=== PATIENT | female | born 1955 | race Caucasian/White ===

== ENCOUNTER → 2024-01-08 | Day surgery (SDC) | payer MEDICARE, OTHER ==
[2024-01-06 11:17] VITALS: BMI 29.9
[~2024-01-08] MED LIST: Lidocaine 1% PF 5 ML VIAL ONE; Lidocaine Viscous Sol 2% 15 ml UD Cup ONE; PROPOFOL 20 ML ONE
[2024-01-08 11:41] VITALS: BP 157/74; TEMP 98.3
== END ==
LOC: CSHSDC 10:47
PROVIDERS: ATTEND Specialist
PROC: 5A2204Z Restoration of Cardiac Rhythm, Single (ICD-10-PCS; principal; 2024-01-08)
PROC: B246ZZ4 Ultrasonography of Right and Left Heart, Transesophageal (ICD-10-PCS; 2024-01-08)
DX: I48.91 Unspecified atrial fibrillation (principal); I48.11 Longstanding persistent atrial fibrillation; E78.5 Hyperlipidemia, unspecified; I12.9 Hypertensive chronic kidney disease with stage 1 through stage 4 chronic kidney disease, or unspecified chronic kidney disease; N18.9 Chronic kidney disease, unspecified; E66.9 Obesity, unspecified; Z98.890 Other specified postprocedural states; Z79.01 Long term (current) use of anticoagulants; Z96.651 Presence of right artificial knee joint; Z90.710 Acquired absence of both cervix and uterus; Z79.82 Long term (current) use of aspirin; Z79.899 Other long term (current) drug therapy; Z68.30 Body mass index [BMI] 30.0-30.9, adult
CPT/HCPCS: 92960; 93005; 93312; J2704; 93010

== ENCOUNTER 2025-01-06 12:26 | Outpatient (CLI) | payer MEDICARE, OTHER | END 2025-01-06 12:27 | disposition home or self-care (01) | LOC: CSHMAMMO 12:26 | PROVIDERS: ATTEND Internal Medicine | DX: Z12.31 Encounter for screening mammogram for malignant neoplasm of breast (principal) | CPT/HCPCS: 77063; 77067 ==